=== PATIENT | female | born 1940 | race Caucasian/White ===

== ENCOUNTER 2023-10-01 14:21 | Outpatient (CLI) | payer MEDICARE, OTHER ==
[2023-10-01 16:13] LABS: #Basophils 0.1 10x3/uL (0.0-0.2); #Eosinphils 0.2 10x3/uL (0.0-0.5); #Monocytes 0.5 10x3/uL (0.0-1.1); %Basophils 1.1 % (0.0-2.0); %Eosinophils 3.9 % (0.0-6.0); %Lymphocytes 36.9 % (18.0-47.0); %Monocytes 8.5 % (0.0-10.0); %Neutrophils 49.4 % (40.0-75.0); Hematocrit 34.6 % (34.9-44.5); Hemoglobin 11.5 g/dL (12.0-15.5); Mean Corpuscular HGB CONC 33.2 g/dL (32.0-36.0); Mean Corpuscular Hemoglobin 29.7 pg (27.0-33.0); Mean Corpuscular Volume 89.4 fl (81.6-98.3); Mean Platelet Volume 9.8 fl (7.4-10.4); Platelet Count 279 10x3/uL (150-450); RBC Distribution Width 13.7 % (11.5-14.5); Red Blood Cell (RBC) Count 3.87 10x6/uL (3.90-5.03); White Blood Cell (WBC) Count 6.1 10x3/uL (3.5-10.5)
[2023-10-01 16:47] LABS: ALT (SGPT) 15 U/L (8-55); AST (SGOT) 22 U/L (5-34); Albumin 4.1 g/dL (3.4-4.8); Alkaline Phosphatase 73 U/L (40-110); Anion Gap 11 mmol/L (10-20); BUN (Urea Nitrogen) 18 mg/dL (9.8-20.1); Bilirubin, Total 0.6 mg/dL (0.2-1.2); Calc. Creatinine Clearance 0 mL/min (70-130); Calcium 8.8 mg/dL (7.8-10.44); Carbon Dioxide 22 mmol/L (23-31); Chloride 110 mmol/L (98-107); Estimated GFR 71; Globulin 1.8 g/dL (2.4-3.5); Glucose 95 mg/dL (83-110); Protein, Total 5.9 g/dL (5.8-8.1); Sodium 139 mmol/L (136-145)
== END 2023-10-01 14:22 | disposition home or self-care (01) ==
LOC: LABBT 14:21
PROVIDERS: ATTEND Surgery
DX: Z01.818 Encounter for other preprocedural examination (principal); K64.9 Unspecified hemorrhoids
CPT/HCPCS: 80053; 85025; 93005; 93010

== ENCOUNTER 2023-10-08 08:06 | Day surgery (SDC) | payer MEDICARE, OTHER ==
[2023-10-01 15:09] VITALS: BMI 26.4
[2023-10-08] MEDS ORDERED: Etomidate 40 MG (20 mL) VIAL ONE (12:03)
[2023-10-08] MEDS ORDERED: Bupivacaine 0.25% HCL 30 ML VIAL ONE (12:04)
[2023-10-08] MEDS ORDERED: EPINEPHrine 1 MG/ML VIAL ONE (12:04)
[2023-10-08] MEDS ORDERED: Lidocaine 2% PF 5 ML VIAL ONE (12:05)
[2023-10-08] MEDS ORDERED: Rocuronium Bromide 10 MG/ML (10ML VIAL) ONE (12:07)
[2023-10-08] MEDS ORDERED: fentaNYL 50 mcg/mL 1 mL Vial ONE ×2 (12:07→13:58)
[2023-10-08] MEDS ORDERED: Bacitracin Zinc Ointment 30 gm TUBE ONE (12:07)
[2023-10-08] MEDS ORDERED: cefOXitin 2 GM VIAL ONE (12:18)
[2023-10-08] MEDS ORDERED: Sodium Chloride 0.9% 100 ML ONE (12:18)
[2023-10-08] MEDS ORDERED: Lidocaine 2% 6 ML (Jelly) SYR ONE (12:26)
[2023-10-08] MEDS ORDERED: Dexamethasone 20 MG/5 ML VIAL ONE (12:41)
[2023-10-08] MEDS ORDERED: Ondansetron PF 4 MG/2 ML Vial ONE ×2 (12:41→13:21)
[2023-10-08] MEDS ORDERED: SUGAMMADEX SODIUM 200 MG/2 ML VIAL ONE (12:52)
[2023-10-08] MEDS ORDERED: ePHEDrine Sulfate 50 MG/10 ML VIAL ONE (12:53)
[2023-10-08] MEDS ORDERED: Promethazine HCl 25 MG/ML VIAL ONE (13:38)
[2023-10-08] MEDS ORDERED: hydrALAZINE 20 MG/ML VIAL ONE (13:49)
[2023-10-08] MEDS ORDERED: Acetaminophen 500 MG TAB ONE (15:16)
== END 2023-10-08 15:37 | disposition home or self-care (01) ==
LOC: SDC 08:06
PROVIDERS: ATTEND Surgery
PROC: 06BY0ZC Excision of Hemorrhoidal Plexus, Open Approach (ICD-10-PCS; principal; 2023-10-08)
DX: K64.2 Third degree hemorrhoids (principal); I10 Essential (primary) hypertension; E03.9 Hypothyroidism, unspecified; Z79.890 Hormone replacement therapy; Z79.899 Other long term (current) drug therapy; Z79.82 Long term (current) use of aspirin; Z90.49 Acquired absence of other specified parts of digestive tract; Z91.048 Other nonmedicinal substance allergy status
CPT/HCPCS: 46947; J0171; J0360; J3010; 88304; J0665; J0694; J1100; J2001; J2405; J2550; J3490